=== PATIENT | female | born 1990 | race Hispanic/Latino ===

== ENCOUNTER 2016-08-14 02:25 | Emergency (ER) | payer OTHER, MEDICAID ==
[2016-08-14 02:35] VITALS: BP 131/78
[2016-08-14 02:52] LABS: Basophils % (Auto) 0.5 % (0.0-1.8); Eosinophils % (Auto) 2.9 % (0.0-4.3); Hematocrit 40.7 % (30.3-42.9); Hemoglobin 13.5 gm/dl (10.1-14.3); Mean Corpuscular HGB Conc 33 % (30-34); Mean Corpuscular Hemoglobin 30 pg (28-32); Mean Corpuscular Volume 90 fl (79-97); Platelet Count 182 K/mm3 (140-440); Red Blood Count 4.51 M/mm3 (3.65-5.03); Red Cell Distribution Width 13.5 % (13.2-15.2); White Blood Count 4.5 K/mm3 (4.5-11.0)
[2016-08-14 03:07] LABS: Alanine Aminotransferase 39 units/L (7-56); Albumin 4.3 g/dL (3.9-5); Albumin/Globulin Ratio 1.5 %; Alkaline Phosphatase 116 units/L (35-129); Anion Gap 15 mmol/L; BUN/Creatinine Ratio 18.57; Bilirubin,Total 0.5 mg/dL (0.1-1.2); Blood Urea Nitrogen 13 mg/dL (7-17); Calcium 8.8 mg/dL (8.4-10.2); Carbon Dioxide 27 mmol/L (22-30); Chloride 103.4 mmol/L (98-107); Glucose 106 mg/dL (65-100); Lipase 38 units/L (13-60); Potassium 4.2 mmol/L (3.6-5.0); Sodium 141 mmol/L (137-145); Total Protein 7.1 g/dL (6.3-8.2)
--- NOTE | 2016-08-15 01:40 | ED Elopement Review ---
ED Pt Elopement review - Results review Lab results: Laboratory Tests 08/14/16 08/14/16 02:41 02:41 WBC 4.5 RBC 4.51 Hgb 13.5 Hct 40.7 MCV 90 MCH 30 MCHC 33 RDW 13.5 Plt Count 182 Lymph % (Auto) 44.9 H Garrard % (Auto) 11.9 H Eos % (Auto) 2.9 Baso % (Auto) 0.5 Lymph # 2.0 Garrard # 0.5 Eos # 0.1 Baso # 0.0 Seg Neutrophils % 39.8 L Seg Neutrophils # 1.8 Sodium 141 Potassium 4.2 Chloride 103.4 Carbon Dioxide 27 Anion Gap 15 BUN 13 Creatinine 0.7 Estimated GFR > 60 BUN/Creatinine Ratio 18.57 Glucose 106 H Calcium 8.8 Total Bilirubin 0.5 AST 61 H ALT 39 Alkaline Phosphatase 116 Total Protein 7.1 Albumin 4.3 Albumin/Globulin Ratio 1.5 Lipase 38 - Call Back decision Pt Call Back Decision: Pt to F/U with PMD
== END 2016-08-14 02:45 | disposition left against medical advice (07) ==
LOC: ED 02:25
DX: R10.30 Lower abdominal pain, unspecified (principal); M54.5 Low back pain; R11.0 Nausea; Z53.21 Procedure and treatment not carried out due to patient leaving prior to being seen by health care provider
CPT/HCPCS: 36415; 80053; 83690; 85025